=== PATIENT | male | born 1980 | race African-American/Black ===

== ENCOUNTER 2022-02-14 16:12 | Emergency (ER) | payer OTHER ==
[~2022-02-14] VITALS: Ht 195.6 cm; Wt 104.5 kg
[2022-02-14] VITALS (11 sets, daily range): BP systolic 124–141; BP diastolic 77–95
[2022-02-14 17:30] LABS: HEMATOCRIT 34.3 % (39.0-50.0); HEMOGLOBIN 11.3 g/dl (14.0-18.0); IMMATURE GRANULOCYTES 0.1 % (0.0-5.0); MEAN CELL VOLUME 80.9 fL CALC (80.0-100.0); MEAN CORPUSCULAR HGB 26.7 pG CALC (26.0-32.0); MEAN CORPUSCULAR HGB CONC 32.9 g/dL CAL (32.0-36.0); NEUT# 6.88 thou/uL (1.82-7.42); RED BLOOD COUNT 4.24 mill/uL (4.70-6.10)
[2022-02-14 17:51] LABS: ALBUMIN 4.1 g/dL (3.2-5.0); ALKALINE PHOSPHATASE 68 u/l (38-126); ANION GAP 14 (6-22 (CALC)); BILIRUBIN, TOTAL 0.9 mg/dL (0.0-1.4); BUN 16 mg/dL (9-20); BUN/CREATININE RATIO 19 (12-20 (CALC)); CARBON DIOXIDE 25 mmol/l (22-30); CHLORIDE 106 mmol/l (95-108); CREATININE 0.8 mg/dL (0.7-1.3); GFR FOR AFR.AMER. > 60 ML/MIN (>=60 (CALC)); GFR OTHER RACES > 60 ML/MIN (>=60 (CALC)); POTASSIUM 4.7 mmol/l (3.5-5.1); SGOT/AST 18 u/l (17-59); SODIUM 141 mmol/l (137-146); TOTAL PROTEIN 7.7 g/dL (6.3-8.2)
== END 2022-02-14 20:11 | disposition short-term general hospital (02) | DRG 300 ==
LOC: ED 16:12
PROVIDERS: Nurse Practitioner
DX: I82.412 Acute embolism and thrombosis of left femoral vein (principal); L03.116 Cellulitis of left lower limb; I82.432 Acute embolism and thrombosis of left popliteal vein
CPT/HCPCS: J1650

== ENCOUNTER 2022-03-26 10:35 | Emergency (ER) | payer OTHER ==
[~2022-03-26] VITALS: Ht 195.6 cm; Wt 104.0 kg
[2022-03-26] VITALS (10 sets, daily range): BP systolic 105–137; BP diastolic 56–87
[2022-03-26] MEDS ORDERED: WARFARIN5 MG PO (11:52)
[2022-03-26 12:06] LABS: HEMATOCRIT 39.1 % (39.0-50.0); HEMOGLOBIN 12.4 g/dl (14.0-18.0); IMMATURE GRANULOCYTES 0.2 % (0.0-5.0); MEAN CELL VOLUME 82.1 fL CALC (80.0-100.0); MEAN CORPUSCULAR HGB 26.1 pG CALC (26.0-32.0); MEAN CORPUSCULAR HGB CONC 31.7 g/dL CAL (32.0-36.0); NEUT# 2.83 thou/uL (1.82-7.42); RED BLOOD COUNT 4.76 mill/uL (4.70-6.10); RED CELL DISTRI WIDTH 13.9 % (11.5-15.5)
[2022-03-26 12:18] LABS: INTERNATIONAL NORMALIZED RATIO 3.9 RATIO (0.7-1.3); PROTHROMBIN TIME 36.7 SECONDS (9.0-12.5)
[2022-03-26 12:20] LABS: ALBUMIN 4.7 g/dL (3.2-5.0); ALKALINE PHOSPHATASE 67 u/l (38-126); ANION GAP 15 (6-22 (CALC)); BILIRUBIN, TOTAL 0.7 mg/dL (0.0-1.4); BUN 13 mg/dL (9-20); BUN/CREATININE RATIO 14 (12-20 (CALC)); CARBON DIOXIDE 27 mmol/l (22-30); CHLORIDE 102 mmol/l (95-108); CREATININE 0.9 mg/dL (0.7-1.3); GFR FOR AFR.AMER. > 60 ML/MIN (>=60 (CALC)); GFR OTHER RACES > 60 ML/MIN (>=60 (CALC)); POTASSIUM 4.2 mmol/l (3.5-5.1); SGOT/AST 28 u/l (17-59); SODIUM 139 mmol/l (137-146); TOTAL PROTEIN 8.3 g/dL (6.3-8.2)
== END 2022-03-26 15:29 | disposition home or self-care (01) | DRG 301 ==
LOC: ED 10:35
PROVIDERS: Emergency Medicine
DX: I82.512 Chronic embolism and thrombosis of left femoral vein (principal); I82.532 Chronic embolism and thrombosis of left popliteal vein; Z79.01 Long term (current) use of anticoagulants